=== PATIENT | female | born 1940 | race Caucasian/White ===

== ENCOUNTER 2017-02-13 16:50 | Emergency (ER) | payer MEDICARE, MEDICAID ==
--- NOTE | 2017-02-13 18:02 | UC ---
Complaint Female HPI - HPI Summary HPI Summary: The patient comes in today for: 1. The patient is here for a straight catheterization for possible UTI ( dribbling/strong odor) Onset: Odor has been "for a couple of month." But the dribbling started today. Palliative/provocative: Nothing seems to make her symptoms better or worse. Quality: Unable to determine as the patient is not vocal let alone verbal. Region: Possible Severity: Not able to be determined. No definite change in her behavior Time: Comes and goes. Associated symptoms: Fevers: None. Change in behavior: None. * - History Of Current Complaint Chief Complaint: UCGU Stated Complaint: URINARY HAS STRAIGHT CATH Time Seen by Provider: 02/13/17 17:52 Hx Obtained From: Patient Hx Last Menstrual Period: Years ago. ?: No - Allergies/Home Medications Allergies/Adverse Reactions: Allergies Allergy/AdvReac Type Severity Reaction Status Date / Time Risperidone Allergy Unknown Verified 02/13/17 17:29 Reaction Details Tizanidine Allergy Unknown Verified 02/13/17 17:29 Reaction Details Home Medications: Home Medications Acetaminophen SUPP* [Tylenol Supp*] 650 mg MD Q4H PRN 02/13/17 [History Confirmed 02/13/17] Acetaminophen TAB* [Tylenol TAB*] 650 mg PO Q4H PRN 02/13/17 [History Confirmed 02/13/17] Calcitonin NASAL(NF) [Fortical(NR)] 1 mg NASAL EVERY OTHER DAY 02/13/17 [ History Confirmed 02/13/17] Chlorhexidine Gluconate (Mouth [Peridex] 0.12 % MT BID 02/13/17 [History Confirmed 02/13/17] Cranberry (Vaccinium Macrocarp [Cranberry] 400 mg PO BID 02/13/17 [History Confirmed 02/13/17] Cyclobenzaprine TAB* [Flexeril 10 MG TAB*] 10 mg PO TID PRN 02/13/17 [History Confirmed 02/13/17] Erythromycin OPTH OINT* 1 applic RIGHT EYE BID 02/13/17 [History Confirmed 02/13] Estradiol VAGINAL TAB(NF) [Vagifem] 10 mcg VAGINAL WEEKLY 02/13/17 [History Confirmed 02/13/17] Levothyroxine TAB* [Synthroid TAB*] 25 mcg PO DAILY 02/13/17 [History Confirmed 02/13/17] Linaclotide [Linzess] 145 mcg PO EVERY OTHER DAY 02/13/17 [History Confirmed ] Mineral Oil Extra Heavy 5 drop BOTH EARS SEE INSTRUCTIONS 02/13/17 [History Confirmed 02/13/17] Polyethylene Glycol 3350* [Miralax*] 17 gm PO DAILY 02/13/17 [History Confirmed 02/13/17] Probiotic Product [Acidophilus] 1 cap PO DAILY 02/13/17 [History Confirmed 02/13] Sodium Phosphate ADULT ENEMA* [Fleet Enema*] 1 enema MD BEDTIME PRN 02/13/17 [ History Confirmed 02/13/17] carBAMazepine TAB(*) [TEGretol TAB(*)] 200 mg PO DAILY 02/13/17 [History Confirmed 02/13/17] carBAMazepine TAB(*) [TEGretol TAB(*)] 400 mg PO BEDTIME 02/13/17 [History Confirmed 02/13/17] PMH/Surg Hx/FS Hx/Imm Hx Previously Healthy: No - Osteoporosis, constipation, uterine fibroids, hx anemia , +PPD/-CXR, UTI's Endocrine History Of: Reports: Thyroid Disease, Hypothyroidism Cardiovascular History Of: Denies: Cardiac Disorders, Hypertension, Pacemaker/ICD, Myocardial Infarction , Congestive Heart Failure, Atrial Fibrillation, Deep Vein Thrombosis, Bleeding Disorders Respiratory History Of: Denies: COPD, Asthma, Bronchitis, Pneumonia, Pulmonary Embolism GI/ History Of: Reports: Gastrointestinal Bleed - Assumed to be from Fosamax-- stopped. Denies: Gastroesophageal Reflux, Ulcer, Gall Bladder Disease, Kidney Stones, Diverticulitis, Renal Disease, Urosepsis Neurological History Of: Reports: Dementia, Seizures - uterine Psychological History Of: Denies: Anxiety, Depression, Bipolar Disorder, Schizophrenia, Post Traumatic Stress Disorder Cancer History Of: Denies: Lung Cancer, Colorectal Cancer, Breast Cancer, Prostate Cancer, Cervical Cancer Other History Of: Negative For: HIV, Hepatitis B, Hepatitis C, Anticoagulant Therapy - Surgical History Surgical History: Yes Surgery Procedure, Year, and Place: T&A. REMOVAL OF PAPILLOMA R EYELID. DENTAL EXTRACTIONS. R GIRDLESTONE AND B/L ADDUCTOR RELEASE. CECOSTOMY - Family History Known Family History: Positive: Unknown - The patient lives in a correction. Fam Hx not know. - Social History Occupation: Unemployed, Disabled Alcohol Use: None Substance Use Type: None Smoking Status (MU): Never Smoked Tobacco Review of Systems Constitutional: Negative Skin: Negative Eyes: Negative ENT: Negative Respiratory: Negative Cardiovascular: Negative Gastrointestinal: Negative Genitourinary: Negative All Other Systems Reviewed And Are Negative: Yes Physical Exam Triage Information Reviewed: Yes Appearance: Well-Appearing, No Pain Distress, Well-Nourished, Other: - The patient is non-vocal, but will follow one with her right eye. The left eye has a strabismus. She Vital Signs: Initial Vital Signs Temp 98.8 F 02/13/17 17:13 Pulse 78 02/13/17 17:13 Resp 20 02/13/17 17:13 Pulse Ox 96 02/13/17 17:13 Vital Signs Reviewed: Yes Eyes: Positive: Conjunctiva Clear. Negative: Discharge ENT: Positive: Pharynx normal, Other: - Her left ear TM was alvarez and translucent. However, I was not able to see her left TM due to her right upper extremity being in a contractured state next to her ear.. Negative: Pharyngeal erythema, Nasal congestion, Nasal drainage, Tonsillar swelling, Tonsillar exudate Dental: Positive: Other: - NO leukoplakia seen. She was a mouth-breather. Neck: Positive: No Lymphadenopathy, Other: - NO masses, no JVD. Respiratory: Positive: Lungs clear, No respiratory distress, No accessory muscle use. Negative: Crackles, Wheezing Cardiovascular: Positive: RRR, No Murmur Abdomen Description: Positive: Nontender, No Organomegaly, Soft. 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 She has decreased spontaneous movement. She is in a wheelchair motionless. Neurological: Positive: Alert - She will respond with her right eye. Psychological: Positive: Normal Response To Family, Other: - She was acting according to her normal self as per the tool designer who is with her at this evaluation. Skin: Negative: rashes, breakdown Complaint Female Dx - Course Course Of Treatment: The nursing staff in the office states that with the patient being a [facility], they are not able to do a straight cath here. But, we can send the patient to the ER. However, when I talked to the tool designer, and told her this, she wondered why the patient was sent to us in the first place when she can have a straight cath at her correction. The impression she had was that the correction called the primary care physician who thought that the patient could not have a straight cath done in the correction, and therefore sent her here to have it done. But, with the tool designer stating that they have a [facility] and can straight cath her there, she is recommended to do this as the primary care provider wanted. - Differential Dx/Diagnosis Provider Diagnoses: Malodorus urine. Urinary incontinence. Discharge - Discharge Plan Condition: Stable Disposition: HOME Additional Instructions: Please have the patient straight catheterized at home or in the ER with the urine going for a urine analysis and urine culture with the results going to the patient's primary care provider.
== END 2017-02-13 18:33 | disposition home or self-care (01) ==
LOC: UCCORT 16:50
DX: R32 Unspecified urinary incontinence (principal); R82.99 Other abnormal findings in urine; Z88.8 Allergy status to other drugs, medicaments and biological substances; Z87.440 Personal history of urinary (tract) infections; E03.9 Hypothyroidism, unspecified
CPT/HCPCS: 99202; G0463

== ENCOUNTER 2018-08-06 09:04 | Emergency (ER) | payer MEDICARE, MEDICAID ==
[2018-08-06 09:28] VITALS: BP 102/62
--- NOTE | 2018-08-06 09:39 | ED ---
Throat Pain/Nasal Congestion - HPI Summary HPI Summary: 77 yr old female with blood from right ear this morning on the pillow. People at the home cleaned up her ear. They have been using baby oil in the ears for wax removal per the aid that is with her. No other complaints. Patient is wheelchair bound and limited movement arms and legs due to contractures. Patient not able to pick at her own ears or put things in her ears. - History of Current Complaint Chief Complaint: UCEar Time Seen by Provider: 08/06/18 09:28 - Allergies/Home Medications Allergies/Adverse Reactions: Allergies Allergy/AdvReac Type Severity Reaction Status Date / Time risperidone Allergy Unknown Verified 08/06/18 09:07 Reaction Details tizanidine Allergy Unknown Verified 08/06/18 09:07 Reaction Details Home Medications: Home Medications Acetaminophen SUPP* [Tylenol Supp*] 650 mg ME Q4H PRN 08/06/18 [History Confirmed 08/06/18] Acetaminophen TAB* [Tylenol TAB*] 650 mg PO Q4H PRN 08/06/18 [History Confirmed 08/06/18] Amino Acids/Protein Hydrolys [Pro-Stat Awc Liquid] 30 ml PO 0700,1500 08/06/18 [ History Confirmed 08/06/18] Apixaban* [Eliquis*] 5 mg PO 0700,1900 08/06/18 [History Confirmed 08/06/18] Bacitracin OINTMENT* 1 applic TOPICAL BID PRN 08/06/18 [History Confirmed ] Calcitonin NASAL(NF) [Fortical(NR)] 1 spray ALT NARE 18308/06/18 [History Confirmed 08/06/18] Chlorhexidine MOUTHWASH 0.12%* [Peridex Mouth Wash 0.12%*] 5 ml MT 0630,1830 06/16 [History Confirmed 08/06/18] Clotrimazole/Betamethasone* [Lotrisone Cream*] 1 applic TOPICAL BID PRN [History Confirmed 08/06/18] [place] Starch [Resource Thickenup] 1 each PO SEE INSTRUCTIONS PRN 08/06/18 [ History Confirmed 08/06/18] Cranberry Fruit [Cranberry] 400 mg PO 0600,1830 08/06/18 [History Confirmed 06/16] Cyclobenzaprine TAB* [Flexeril 10 MG TAB*] 10 mg PO 0600,1500,2000 08/06/18 [ History Confirmed 08/06/18] Digoxin TAB* [Lanoxin TAB*] 0.125 mg PO 0400 08/06/18 [History Confirmed ] Estradiol [Yuvafem] 10 mcg VA FR 08/06/18 [History Confirmed 08/06/18] Foam Bandage [Mepilex Border] 1 each TOPICAL EVERY OTHER DAY 08/06/18 [History Confirmed 08/06/18] Lactobacillus Acidophilus [Freeze Dried Acidophilus] 1 cap PO 0600,1800 [History Confirmed 08/06/18] Levothyroxine TAB* [Synthroid TAB*] 25 mcg PO 0500 08/06/18 [History Confirmed 08/06/18] Linaclotide (NF) [Linzess (NF)] 145 mcg PO 0530 08/06/18 [History Confirmed 06/16] Metoprolol Tartrate TAB* [Lopressor TAB*] 25 mg PO 0700,1900 08/06/18 [History Confirmed 08/06/18] Mineral Oil STERILE* [Sterile Mineral Oil*] 5 drop OTIC MOFR 08/06/18 [History Confirmed 08/06/18] Nystatin CREAM* [Nystatin Cream*] 1 applic TOPICAL BID 08/06/18 [History Confirmed 08/06/18] Polyethylene Glycol 3350* [Miralax*] 17 gm PO 0600,1800 08/06/18 [History Confirmed 08/06/18] Sodium Phosphate ADULT ENEMA* [Fleet Enema*] 1 enema .SEE ORDER EVERY OTHER DAY 08/06/18 [History Confirmed 08/06/18] Surgical Lubricant STERILE* [Surgilube*] 1 applic TOPICAL DAILY PRN 08/06/18 [ History Confirmed 08/06/18] guaiFENesin LIQ* [Robitussin*] 10 ml PO Q6H PRN 08/06/18 [History Confirmed 06/16] levETIRAcetam TAB* [Keppra TAB*] 500 mg PO 0600,2000 08/06/18 [History Confirmed 08/06/18] PMH/Surg Hx/FS Hx/Imm Hx Endocrine/Hematology History: Reports: Hx Thyroid Disease Denies: Hx Anticoagulant Therapy Cardiovascular History: Denies: Hx Congestive Heart Failure, Hx Deep Vein Thrombosis, Hx Hypertension , Hx Myocardial Infarction, Hx Pacemaker/ICD Respiratory History: Denies: Hx Asthma, Hx Chronic Obstructive Pulmonary Disease (COPD), Hx Lung Cancer, Hx Pneumonia, Hx Pulmonary Embolism GI History: Reports: Hx Gastrointestinal Bleed - Assumed to be from Fosamax-- stopped. Denies: Hx Gall Bladder Disease, Hx Ulcer, Hx Urosepsis History: Denies: Hx Kidney Stones, Hx Renal Disease Neurological History: Reports: Hx Dementia, Hx Seizures - uterine Psychiatric History: Denies: Hx Anxiety, Hx Depression, Hx Schizophrenia, Hx Bipolar Disorder - Surgical History Surgery Procedure, Year, and Place: T&A. REMOVAL OF PAPILLOMA R EYELID. DENTAL EXTRACTIONS. R GIRDLESTONE AND B/L ADDUCTOR RELEASE. CECOSTOMY Infectious Disease History: No Infectious Disease History: Denies: Traveled Outside the [place] in Last 30 Days - Family History Known Family History: Positive: Unknown - The patient lives in a [facility]. Fam Hx not know. - Social History Lives: [facility] Alcohol Use: None Substance Use Type: Reports: None Smoking Status (MU): Never Smoked Tobacco Review of Systems Constitutional: Negative Positive: Other - blood from right ear All Other Systems Reviewed And Are Negative: Yes Physical Exam Triage Information Reviewed: Yes Vital Signs On Initial Exam: Initial Vitals Temp Pulse Resp BP Pulse Ox 97.8 F 66 18 102/62 100 08/06/18 09:16 08/06/18 09:16 08/06/18 09:16 08/06/18 09:16 08/06/18 09:16 Vital Signs Reviewed: Yes Appearance: Positive: No Pain Distress Skin: Positive: Warm, Skin Color Reflects Adequate Perfusion Head/Face: Positive: Normal Head/Face Inspection ENT: Positive: Pharynx normal, TMs normal - Right external canal with dry blood present, no active bleeding.. Negative: Nasal congestion, Nasal drainage, Muffled voice, Hoarse voice, Sinus tenderness Neck: Positive: Nontender Respiratory/Lung Sounds: Positive: Clear to Auscultation, Breath Sounds Present Cardiovascular: Positive: RRR. Negative: Murmur Abdomen Description: Positive: Nontender Musculoskeletal: Positive: Other - contractures and wheel chair bound Neurological: Positive: Other - at her baseline per the attendant. non verbal and with contractures in a wheelchair Psychiatric: Positive: Other - at her baseline Diagnostics - Vital Signs Vital Signs Temp Pulse Resp BP Pulse Ox 08/06/18 09:16 97.8 F 66 18 102/62 100 - Laboratory Lab Statement: Any lab studies that have been ordered have been reviewed, and results considered in the medical decision making process. EENT Course/Dx - Course Course Of Treatment: 77 yr old female who has been getting baby oil drops put in ears for ear wax. Possible her external canal was scratched. Plan DC home. DC the ear drops and FU with ENT. She received Eliquis at 7 am. Too late to hold the Eliquis today, and no active bleeding now. - Diagnoses Provider Diagnoses: Hemorrhagic otitis externa, right ear Discharge - Sign-Out/Discharge Documenting (check all that apply): Patient Departure All imaging exams completed and their final reports reviewed: No Studies - Discharge Plan Condition: Good Disposition: HOME Referrals: Simón Vasquez MD [Primary Care Provider] - 1 Day Bjorn Mckeon MD [Medical Doctor] - Keny Hooper MD [Medical Doctor] - Additional Instructions: There is presently dry blood in the right ear. For any further bleeding you need to go to the ER for further evaluation and treatment since this patient has already taken the Eliquis dose today which is a blood thinner. Do not put drops in the right ear at this point. Follow up with Primary and ENT for further recommendations. For any fever, chills or worsening symptoms go to the hospitals. - Billing Disposition and Condition Condition: GOOD Disposition: Home
== END 2018-08-06 09:55 | disposition home or self-care (01) ==
LOC: UCCORT 09:04
DX: H60.321 Hemorrhagic otitis externa, right ear (principal)
CPT/HCPCS: 99212; G0463